=== PATIENT | female | born 2000 | race Caucasian/White ===

== ENCOUNTER 2020-07-23 17:27 | Emergency (ER) | payer BC ==
[2020-07-23 18:18] VITALS: TEMP 98.2
--- NOTE | 2020-07-23 19:34 | ED ---
ENT HPI - General Chief complaint: Dental/Oral Stated complaint: dental infection Time Seen by Provider: 07/23/20 19:00 Source: patient Mode of arrival: ambulatory Limitations: no limitations - History of Present Illness Initial comments: Patient is a 19-year-old female presenting to the emergency Department with complaints of a possible dental infection. Patient was at the dentist last week, had routine x-rays and they revealed a small dental infection on the right upper side. She was started on amoxicillin. She went back today for a cleaning and checkup, they sent her in the ER secondary to some mild right-sided facial swelling. Patient states she was not having any pain last week, she has very mild discomfort when she opens her mouth wide. She denies any fevers or chills, no nausea or vomiting. She denies any headache, no blurry vision, no facial pain. She has no further complaints at this time. On arrival to the ER her vitals are stable. - Related Data Previous Rx's Medication Instructions Recorded Clindamycin [Cleocin] 450 mg PO Q8H 7 Days #63 capsule 07/23/20 Allergies Allergy/AdvReac Type Severity Reaction Status Date / Time milk Allergy Unknown Verified 07/23/20 18:18 cod fish Allergy Swelling Uncoded 07/23/20 18:18 Review of Systems ROS Statement: Those systems with pertinent positive or pertinent negative responses have been documented in the HPI. ROS Other: All systems not noted in ROS Statement are negative. Past Medical History Additional Past Medical History / Comment(s): pulmonary valve stenosis History of Any Multi-Drug Resistant Organisms: None Reported Additional Past Surgical History / Comment(s): heart patch Past Psychological History: No Psychological Hx Reported Smoking Status: Never smoker Past Alcohol Use History: None Reported Past Drug Use History: None Reported General Exam - General Exam Comments Initial Comments: GENERAL: Patient is well-developed and well-nourished. Patient is nontoxic and in no acute distress. HEAD: Atraumatic, normocephalic. EYES: Pupils equal round and reactive to light, extraocular movements intact, sclera anicteric, conjunctiva are normal. Eyelids were unremarkable. ENT: Nares patent, oropharynx clear without exudates. Moist mucous membranes. Patient has a very mild right sided facial swelling, no facial erythema. no visible dental abscess seen. She does have some pain along the gumline of the right upper side. NECK: Normal range of motion, supple without lymphadenopathy or JVD. LUNGS: Unlabored respirations. Breath sounds clear to auscultation bilaterally and equal. No wheezes rales or rhonchi. HEART: Regular rate and rhythm without murmurs, rubs or gallops. ABDOMEN: Soft, nontender, normoactive bowel sounds. : Deferred MUSCULOSKELETAL: Normal extremities with adequate strength and normal range of motion, no pitting or edema. No clubbing or cyanosis. NEUROLOGICAL: Patient is alert and oriented x 3. Symmetrical smile. Normal speech, normal gait. SKIN: Warm, Dry, normal turgor, no rashes or lesions noted. Limitations: no limitations Course Vital Signs 07/23/20 18:13 Temperature 98.2 F Pulse Rate 86 Respiratory 18 Rate Blood Pressure 106/72 O2 Sat by Pulse 98 Oximetry Medical Decision Making - Medical Decision Making Patient is a 19-year-old female here for some mild right-sided facial swelling secondary to dental abscess. Her vital signs are stable, afebrile. She's been on amoxicillin since last week. Dentist sent her in today secondary to some mild facial swelling. She's had no fevers, no nausea or vomiting, minimal pain. Patient's antibiotic will be switched to clindamycin, recommend a follow-up with a dentist. Return parameters were discussed with the patient and her mother and they both verbalized understanding. Discussed with Dr. Soni. Disposition Clinical Impression: Dental abscess, Toothache Disposition: HOME SELF-CARE Condition: Stable Instructions (If sedation given, give patient instructions): Dental Abscess (ED) Additional Instructions: Please return to the Emergency Department if symptoms worsen or any other concerns. Take antibiotic as prescribed. May take ibuprofen for swelling or pain control. Follow-up with your dentist. Prescriptions: Clindamycin [Cleocin] 450 mg PO Q8H 7 Days #63 capsule Is patient prescribed a controlled substance at d/c from ED?: No Referrals: Mata Milian MD [Primary Care Provider] - 1-2 days Time of Disposition: 19:34
[2020-07-23 19:45] VITALS: BP 112/74; PULSE 88; RESP 16
== END 2020-07-23 19:47 | disposition home or self-care (01) ==
LOC: EC 17:27
DX: K04.7 Periapical abscess without sinus (principal)
CPT/HCPCS: 99282

== ENCOUNTER → 2020-07-28 | Outpatient (CLI) | payer BC | END | disposition home or self-care (01) | LOC: LABMAIN 11:19 | PROVIDERS: ATTEND Family Medicine | DX: K04.7 Periapical abscess without sinus (principal) | CPT/HCPCS: 36415; 87040 ==